=== PATIENT | female | born 1995 | race Asian ===

== ENCOUNTER 2019-12-21 14:57 | Inpatient (IN) | payer OTHER ==
[2019-12-21] MEDS ORDERED: Bupivacaine 0.25% HCL 30 ML VIAL ONE (15:45)
[2019-12-21] MEDS ORDERED: ePHEDrine/0.9% NaCl/PF SYRINGE 50 mg/10 ml ONE (15:45)
--- NOTE | 2019-12-21 17:08 | PDOC.LDHP ---
Labor and Delivery H&P Chief complaint: scheduled induction HPI: 24 yo G1 @ 37w1d by LMP c/w 11 week sono who presents for IOL due to GHTN Current gestational age (weeks): 37 Due date: 01/10/20 Dating criteria: last menstrual period Grav: 1 Para: 0 Current complications: gestational hypertension Abnormal US findings: No Past Medical History: Anemia Current medications: pre- vitamins, iron Previous surgical history: none Allergies/Adverse Reactions: Allergies Allergy/AdvReac Type Severity Reaction Status Date / Time No Known Allergies Allergy Verified 12/21/19 20:52 Social history: none - Physical Exam General: NAD Heart: RRR Lungs: nonlabored breathing Abdomen: gravid Extremeties: trace edema FHT: category 1 (130s, mod franco, +accels, no decels) [place] contractions every: q1-3 min - Vaginal Exam cm dilated: 1 (Cook balloon placed 80/80 cc) Effacement: 25% Station: -2 - OB Labs Blood type: O RH: positive Antibody Screen: negative HIV: negative RPR: negative HEPSAg: negative 1 hour GCT: positive 3 hour GTT: wnl GBS: negative Urine drug screen: negative Rubella: non-immune Additional Labs: NIPT, msAFP and carrier screening wnl - Assessment G1 @ 37w1d IUP IOL for GHTN now severe BPs- Severe GHTN vs preE with severe features Rubella NI Prior anemia - Plan Plan: admit to L&D, cervical ripening (s/p cytotec, balloon placed), informed consent obtained, anesthesia consult for pain management, other -: Given Hydralazine 5 mg IV; now given Labetalol 20 mg IV with resolution of severe BPs Start Mag and mag protocol for seizure PPX Start pitocin in combination with balloon
[2019-12-21] MEDS ORDERED: Misoprostol 200 MCG TAB PR PRN (20:01)
[2019-12-21] MEDS ORDERED: HYDROcodone/Acetaminophen 5/325 mg Tablet PO PRN (20:01)
[2019-12-21] MEDS ORDERED: NS / Oxytocin 40 units/1000ml 1,000 ML IV PRN (20:01)
[2019-12-21] MEDS ORDERED: Promethazine HCl 25 MG/ML VIAL IM PRN (20:01)
[2019-12-21] MEDS ORDERED: Ondansetron PF 4 MG/2 ML Vial IVP PRN (20:01)
[2019-12-21] MEDS ORDERED: Butorphanol Tartrate 1 MG/ML VIAL SLOW IVP PRN (20:01)
[2019-12-21] MEDS ORDERED: Lidocaine 1% (PF) 30 ML VIAL SC PRN (20:01)
[2019-12-21] MEDS ORDERED: hydrALAZINE 20 MG/ML VIAL SLOW IVP PRN (20:01)
[2019-12-21] MEDS ORDERED: Carboprost 250 MCG/ML AMP IM PRN (20:01)
[2019-12-21] MEDS ORDERED: Acetaminophen 500 MG TAB PO PRN (20:01)
[2019-12-21] MEDS ORDERED: Meperidine HCl/PF 25 MG/ML VIAL IM/IV PRN (20:01)
[2019-12-21] MEDS ORDERED: Diphenoxylate HCl/Atropine Tablet PO PRN (20:01)
[2019-12-21] MEDS ORDERED: Ibuprofen 800 MG TAB PO PRN (20:01)
[2019-12-21] MEDS: Lactated Ringer's 1,000 ML IV SCH (20:30)
[2019-12-21 20:38] LABS: Hemoglobin 12.5 g/dL (12.0-16.0); Mean Corpuscular Hemoglobin 25.5 pg (27.0-31.0); Mean Corpuscular Volume 75.1 fL (78.0-98.0); Mean Platelet Volume 9.3 fL (7.4-10.4); Platelet Count 220 thou/uL (130-400); RBC Distribution Width 14.8 % (11.5-14.5); Red Blood Cell (RBC) Count 4.89 mill/uL (4.20-5.40); White Blood Cell (WBC) Count 13.5 thou/uL (4.8-10.8)
[2019-12-21 20:51] VITALS: BMI 35.2
[2019-12-21 21:02] LABS: ALT (SGPT) 10 U/L (8-55); AST (SGOT) 12 U/L (5-34); Albumin 3.4 g/dL (3.5-5.0); Alkaline Phosphatase 101 U/L (40-110); Anion Gap 11 mmol/L (10-20); BUN (Urea Nitrogen) 8 mg/dL (7.0-18.7); Bilirubin, Total 0.2 mg/dL (0.2-1.2); Calc. Creatinine Clearance 212 mL/min (70-130); Calcium 9.3 mg/dL (7.8-10.44); Carbon Dioxide 21 mmol/L (22-29); Chloride 109 mmol/L (98-107); Estimated GFR-MDRD Greater than 90; Globulin 3.6 g/dL (2.4-3.5); Glucose 113 mg/dL (70-105); Potassium 3.7 mmol/L (3.5-5.1); Sodium 137 mmol/L (136-145)
[2019-12-21] MEDS: Misoprostol 100 MCG TAB VAG SCH (21:16)
[2019-12-21 21:17] LABS: Syphilis Antibody Nonreactive (Nonreactive); Syphilis Antibody Index 0.06 S/CO (<1.00 Non-Reactive)
[2019-12-21 22:26] LABS: HBSAg Index 0.14 S/CO (0-0.99); HIV (1/2) Antibody/Antigen Non-Reactive (NonReactive); HIV 1/2 INDEX 0.13 S/CO (<1.00); Hep B Surf Ag Non-Reactive S/CO (NonReactive)
[2019-12-21] MEDS ORDERED: diphenhydrAMINE 25 MG CAP PO SCH (22:30)
[2019-12-22] MEDS: Misoprostol 100 MCG TAB VAG SCH ×6 (00:41→17:59)
[2019-12-22] MEDS ORDERED: NS w/ Oxytocin 10 units 500 ML ONE (07:57)
[2019-12-22] MEDS ORDERED: Oxytocin 10 UNITS/ML VIAL ONE (07:57)
[2019-12-22] MEDS ORDERED: Magnesium Sulfate 20 GM/WATER 500 ML BAG IVPB SCH ×2 (08:00→13:30)
[2019-12-22] MEDS ORDERED: Calcium Gluc 4.6 MEQ/10 ML (100 MG/ML) SLOW IVP PRN (08:00)
[2019-12-22] MEDS: Lactated Ringer's 1,000 ML IV SCH ×2 (08:00→15:21)
[2019-12-22] MEDS ORDERED: Magnesium Sulfate 20 gm/500 ml 20 GM/500 ML BAG IVPB SCH (08:00)
[2019-12-22] MEDS ORDERED: Labetalol HCl 100 MG/20 ML VIAL SLOW IVP SCH ×2 (08:15→18:45)
[2019-12-22] MEDS: Magnesium Sulfate 20 GM in Dextrose 5% in Water 460 ML IV SCH ×2 (09:16→17:57)
[2019-12-22] MEDS ORDERED: Fentanyl 4 mcg/Bup 0.1% Cadd 100 ML ONE ×2 (10:28→19:00)
[2019-12-22] MEDS: Fentanyl 4 mcg/Bupivacaine 0.1% Cassette 100 ML EPIDURAL SCH ×2 (11:12→19:03)
[2019-12-22] MEDS ORDERED: Naloxone HCl 0.4 mg/ml Vial IVP PRN ×2 (11:16)
[2019-12-22] MEDS ORDERED: Lactated Ringer's 500 ML IV PRN (11:16)
[2019-12-22] MEDS ORDERED: diphenhydrAMINE 50 MG/ML VIAL IVP PRN (11:16)
[2019-12-22] MEDS ORDERED: Acetaminophen 325 MG TAB PO PRN (11:16)
[2019-12-22] MEDS ORDERED: ePHEDrine/0.9% NaCl/PF SYRINGE 50 mg/10 ml SLOW IVP PRN (11:16)
[2019-12-22] MEDS ORDERED: Ondansetron PF 4 MG/2 ML Vial IVP PRN (11:16)
[2019-12-22] MEDS ORDERED: Promethazine HCl 25 MG/ML VIAL IM PRN (11:16)
[2019-12-22] MEDS ORDERED: Communication Order-Pharmacy FS SCH (11:30)
[2019-12-22 12:30] LABS: Bacteria/HPF None Seen HPF (None Seen); Bilirubin Negative (Negative); Blood, Urine Negative (Negative); Clarity Clear (Clear); Glucose, Urine (Dipstick) Normal (Negative); Leukocyte Negative Leu/uL (Negative); Nitrite Negative (Negative); Protein, Urine (Dipstick) Negative (Neg-Trace); RBC/HPF 0-3 HPF (0-3); Squamous Epithelial 0-3 HPF (0-3); Urobilinogen Normal mg/dL (Less than 2); WBC/HPF 0-3 HPF (0-3)
--- NOTE | 2019-12-22 12:49 | PDOC.LDPN ---
Labor & Delivery Progress Note - Subjective Subjective: comfortable - Objective Abnormal vital signs: HTN, BPs now mild range General: NAD Uterine fundus: non tender Dilation: 5 Effacement: 75% Station: -2 FHT: category 1 (130s, mod franco, + accels, no decels ) [place] contractions every: irregular pattern now Other exam findings: UOP wnl; Mag level pending AROM: clear fluid - Assessment (1) 37 weeks gestation of Code(s): Z3A.37 - 37 WEEKS GESTATION OF Current Visit: Yes Status : Acute (2) Gestational hypertension Code(s): O13.9 - GESTATIONAL HTN W/O SIGNIFICANT PROTEINURIA, UNSP TRIMESTER Current Visit: Yes Status: Acute Plan: continue plan of care, pitocin for augmentation -: s/p balloon removed and AROM Start pitocin Continue mag and mag protocol for severe GHTN vs preE.
--- NOTE | 2019-12-22 16:41 | PDOC.LDPN ---
Labor & Delivery Progress Note - Subjective Subjective: comfortable - Objective Vital signs reviewed and normal: yes General: NAD Uterine fundus: non tender Dilation: 5 Effacement: 75% Station: -2 FHT: category 1 (120s, mod franco, +accels, no decels ) [place] contractions every: q3 min - Assessment (1) 37 weeks gestation of Code(s): Z3A.37 - 37 WEEKS GESTATION OF Current Visit: Yes Status : Acute (2) Gestational hypertension Code(s): O13.9 - GESTATIONAL HTN W/O SIGNIFICANT PROTEINURIA, UNSP TRIMESTER Current Visit: Yes Status: Acute -: IUPC in place, MVUS borderline adequate - inadequate Continue to increase pitocin to achieve adequate MVUs. Continue mag and mag protocol. BPs have been normal - mild range s/p epidural. mag and labetalol 20/40
[2019-12-22] MEDS ORDERED: NS w/ Oxytocin 10 units 500 ML IVPB SCH (18:45)
[2019-12-22] MEDS ORDERED: NS / Oxytocin 40 units/1000ml 1,000 ML ONE (22:21)
[2019-12-22] MEDS ORDERED: Lidocaine 1% (PF) 30 ML VIAL ONE (22:21)
[2019-12-22] MEDS ORDERED: Misoprostol 200 MCG TAB ONE (22:57)
[2019-12-22] MEDS ORDERED: Methylergonovine 0.2 MG/ML VIAL ONE (22:57)
[2019-12-22] MEDS ORDERED: traMADol HCl 50 MG TAB PO PRN (23:11)
[2019-12-22] MEDS ORDERED: Milk Of Magnesia 30 ML UDCUP PO PRN (23:11)
[2019-12-22] MEDS ORDERED: HYDROcodone/Acetaminophen 5/325 mg Tablet PO PRN (23:11)
[2019-12-22] MEDS ORDERED: Preparation H Ointment 28 GM TUBE PR PRN (23:11)
[2019-12-22] MEDS ORDERED: hydrALAZINE 20 MG/ML VIAL SLOW IVP PRN (23:11)
[2019-12-22] MEDS ORDERED: Benzocaine-Menthol 82.5 ML CAN TOP PRN (23:11)
[2019-12-22] MEDS ORDERED: Bisacodyl 10 MG SUPP PR PRN (23:11)
[2019-12-22] MEDS ORDERED: Zolpidem Tartrate 5 MG TAB PO PRN (23:11)
[2019-12-22] MEDS ORDERED: NS / Oxytocin 40 units/1000ml 1,000 ML IV SCH (23:15)
--- NOTE | 2019-12-22 23:16 | PDOC.OPDEL ---
OB Operative/Delivery Note Delivery Dr/Surgeon: Robina Pre-Delivery Diagnosis: elective induction Procedure/Post Delivery Dx: spontaneous vaginal delivery Anesthesia: epidural - Additional Findings/Plan Placenta delivered: spontaneous Repaired Obstetrical Laceration: vaginal Estimated blood loss: 300 Compilations/Other Findings: Precipitous , head delivering at time of my arrival. Remainder of baby delivered easily. Vigorous baby, crying at delivery. Placenta delivered spontaneously Alexa. Atony x 1 tx. with uterine massage, pit drip and Cytotec 800 mg MO with good response. Hymeneal lac repaired w/o difficulty with 2-0 chromic. Report given to Dr. Everett upon her arrival. To recover in LDR, on MgS04. Post delivery plan: recovery in LICU
[2019-12-23] MEDS: HYDROcodone/Acetaminophen 5/325 mg Tablet PO PRN ×4 (02:24→22:35)
[2019-12-23] MEDS: Magnesium Sulfate 20 GM in Dextrose 5% in Water 460 ML IV SCH ×2 (03:39→13:50)
[2019-12-23 05:45] LABS: #Eosinphils 0.1 thou/uL (0.0-0.7); #Lymphocytes 1.9 thou/uL (1.20-3.40); #Monocytes 0.7 thou/uL (0.11-0.59); #Neutrophils 12.4 thou/uL (1.40-6.50); %Basophils 0.2 % (0.0-1.0); %Eosinophils 0.4 % (0.0-10.0); %Lymphocytes 12.6 % (21.0-51.0); %Monocytes 4.5 % (0.0-10.0); %Neutrophils 82.3 % (42.0-75.0); Hemoglobin 11.4 g/dL (12.0-16.0); Mean Corpuscular HGB CONC 32.3 g/dL (32.0-36.0); Mean Corpuscular Hemoglobin 24.6 pg (27.0-31.0); Mean Corpuscular Volume 76.2 fL (78.0-98.0); Mean Platelet Volume 8.8 fL (7.4-10.4); Platelet Count 163 thou/uL (130-400); RBC Distribution Width 14.9 % (11.5-14.5); Red Blood Cell (RBC) Count 4.62 mill/uL (4.20-5.40); White Blood Cell (WBC) Count 15.1 thou/uL (4.8-10.8)
[2019-12-23 06:15] LABS: ALT (SGPT) 10 U/L (8-55); AST (SGOT) 18 U/L (5-34); Albumin 2.9 g/dL (3.5-5.0); Alkaline Phosphatase 82 U/L (40-110); Anion Gap 11 mmol/L (10-20); BUN (Urea Nitrogen) 5 mg/dL (7.0-18.7); Bilirubin, Total 0.5 mg/dL (0.2-1.2); Calc. Creatinine Clearance 240 mL/min (70-130); Calcium 7.1 mg/dL (7.8-10.44); Carbon Dioxide 22 mmol/L (22-29); Chloride 105 mmol/L (98-107); Estimated GFR-MDRD Greater than 90; Globulin 3.1 g/dL (2.4-3.5); Glucose 103 mg/dL (70-105); Potassium 3.7 mmol/L (3.5-5.1); Sodium 134 mmol/L (136-145)
--- NOTE | 2019-12-23 07:53 | PDOC.PP ---
Post Progress Note Post Day #: 1 Subjective: Denies preE sx. Minimal lochia. Good UOP. Breast feeding. PO intake tolerated: yes (sips of liquids) Flatus: yes Ambulation: no Weight Weight 212 lb - Physical Examination General: NAD Cardiovascular: RRR Respiratory: non-labored breathing Abdominal: no distention, appropriately TTP Fundus firm & at: below umbilicus Extremities: negative homans (B) Neurological: no gross focal deficits Psychiatric: A&Ox3, normal affect Result Diagrams: 12/23/19 05:38 12/23/19 05:38 Additional Labs: Post Labs Blood Type O POSITIVE 12/21/19 21:18 Hep Bs Antigen Non-Reactive S/CO (NonReactive) 12/21/19 20:28 (1) 37 weeks gestation of Code(s): Z3A.37 - 37 WEEKS GESTATION OF Status: Acute (2) Gestational hypertension Code(s): O13.9 - GESTATIONAL HTN W/O SIGNIFICANT PROTEINURIA, UNSP TRIMESTER Status: Acute - Assessment/Plan PPD1 GHTN vs preE: one severe range this morning, repeat mild range. Continue to monitor on L&D with mag and mag protocol. Mag level @ noon. Labs wnl. Good UOP. Continue PP care.
[2019-12-23] MEDS: Prenatal Vitamin 1 TAB PO SCH (10:21)
[2019-12-23] MEDS: Docusate Calcium (SURFAK) 240 MG CAP PO SCH ×2 (10:21→22:00)
[2019-12-23] MEDS: Labetalol 100 MG TAB PO SCH ×2 (10:29→22:08)
[2019-12-23] MEDS: Misoprostol 100 MCG TAB VAG SCH ×2 (16:52→16:53)
[2019-12-23] MEDS: Ferrous Sulfate 325 MG TAB PO SCH (16:53)
[2019-12-23] MEDS: Lactated Ringer's 1,000 ML IV SCH (16:53)
[2019-12-24] MEDS: Ferrous Sulfate 325 MG TAB PO SCH ×3 (01:59→18:02)
[2019-12-24] MEDS: Misoprostol 100 MCG TAB VAG SCH ×5 (01:59→18:02)
[2019-12-24] MEDS: Lactated Ringer's 1,000 ML IV SCH (02:00)
--- NOTE | 2019-12-24 08:24 | PDOC.PP ---
Post Progress Note Post Day #: 2 Subjective: No concerns. Pain moderate, improved with meds. Minimal lochia. Breast and bottle feeding. Denies preE sx. PO intake tolerated: yes Flatus: yes Ambulation: yes Vital Signs (12 hours) Temp Pulse Resp BP BP Pulse Ox 12/24/19 07:32 98.9 F 93 20 148/86 H 12/24/19 04:20 97.7 F 99 16 134/85 98 12/24/19 00:22 98.7 F 88 18 121/78 98 12/23/19 22:08 101 H 164/100 H Weight Weight 212 lb - Physical Examination General: NAD Cardiovascular: RRR Respiratory: non-labored breathing Abdominal: no distention, appropriately TTP Fundus firm & at: below umbilicus Extremities: negative homans (B) Neurological: no gross focal deficits Psychiatric: A&Ox3, normal affect Result Diagrams: 12/23/19 05:38 12/23/19 05:38 Additional Labs: Post Labs Blood Type O POSITIVE 12/21/19 21:18 Hep Bs Antigen Non-Reactive S/CO (NonReactive) 12/21/19 20:28 (1) 37 weeks gestation of Code(s): Z3A.37 - 37 WEEKS GESTATION OF Status: Acute (2) Gestational hypertension Code(s): O13.9 - GESTATIONAL HTN W/O SIGNIFICANT PROTEINURIA, UNSP TRIMESTER Status: Acute - Assessment/Plan PPD2 GHTN vs preE: s/p mag (d/c 12/23/19 @ 2300). BPs normal-mild range with Labetalol 200 mg PO BID. Continue PP care and monitor BPs at least 24 hrs off mag. Plan to d/c 1-2 days.
[2019-12-24] MEDS: Prenatal Vitamin 1 TAB PO SCH ×2 (09:15→09:16)
[2019-12-24] MEDS: Labetalol 100 MG TAB PO SCH ×2 (09:15→22:19)
[2019-12-24] MEDS: Docusate Calcium (SURFAK) 240 MG CAP PO SCH ×2 (09:16→22:20)
[2019-12-24] MEDS: HYDROcodone/Acetaminophen 5/325 mg Tablet PO PRN (09:17)
[2019-12-24] MEDS ORDERED: Lanolin Ointment 7 GM TUBE TOP PRN (10:10)
[2019-12-24] MEDS: Ibuprofen 800 MG TAB PO SCH ×2 (14:08→22:20)
[2019-12-25] MEDS: Ibuprofen 800 MG TAB PO SCH ×3 (06:22→22:23)
--- NOTE | 2019-12-25 07:24 | PDOC.PP ---
Post Progress Note Post Day #: 3 Subjective: Elevated range pressure this morning SBP 160/85 with repeat 190s. Denies SERRATO, vision changes, RUQ pain, leg swelling. No anxiety. PO intake tolerated: yes Flatus: yes Ambulation: yes Vital Signs (12 hours) Temp Pulse Resp BP BP BP Pulse Ox 12/25/19 06:20 97.7 F 88 20 168/85 H 99 12/25/19 00:20 98 F 88 20 140/75 98 12/24/19 22:19 97 132/85 12/24/19 20:30 98.5 F 100 24 H 139/89 98 Weight Weight 96.162 kg - Physical Examination Cardiovascular: RRR Respiratory: non-labored breathing Abdominal: appropriately TTP Neurological: no gross focal deficits Result Diagrams: 12/23/19 05:38 12/23/19 05:38 Additional Labs: Post Labs Blood Type O POSITIVE 12/21/19 21:18 Hep Bs Antigen Non-Reactive S/CO (NonReactive) 12/21/19 20:28 - Assessment/Plan s/p induction for gHTN, PPD3 -GHTN vs preE: s/p mag (d/c 12/23/19 @ 2300). Severe range BP 160/80 since being off of magnesium -Keep to monitor BP throughout day -Continue labetalol, may need dose increase if requiring multiple IV antihypertensive throughout day -If has another severe range BP will need to r/o preE-labs
[2019-12-25] MEDS: hydrALAZINE 20 MG/ML VIAL SLOW IVP PRN ×2 (07:48→20:45)
[2019-12-25] MEDS: Labetalol 100 MG TAB PO SCH ×2 (07:53→20:30)
[2019-12-25] MEDS: Ferrous Sulfate 325 MG TAB PO SCH ×2 (07:53→17:21)
[2019-12-25] MEDS: Prenatal Vitamin 1 TAB PO SCH (07:54)
[2019-12-25] MEDS: Docusate Calcium (SURFAK) 240 MG CAP PO SCH ×2 (07:54→20:30)
[2019-12-25] MEDS: Misoprostol 100 MCG TAB VAG SCH ×2 (10:19→14:24)
[2019-12-25] MEDS ORDERED: Labetalol 100 MG TAB PO SCH (21:15)
[2019-12-26] MEDS: Misoprostol 100 MCG TAB VAG SCH ×3 (04:03→09:33)
[2019-12-26] MEDS: Ibuprofen 800 MG TAB PO SCH ×3 (05:52→21:33)
--- NOTE | 2019-12-26 07:29 | PDOC.PP ---
Post Progress Note Post Day #: 3 Subjective: Pt reports doing well. Pt denies any chest pain, SOB. Pt denies any fever or chills. Pt denies any n/v/d/c. Pt reports normal lochia at this time. Pt reports passing gas. Tolerating PO. Pt denies any vision changes, lightheadness. Denies any swelling. PO intake tolerated: yes Flatus: yes Ambulation: yes Vital Signs (12 hours) Temp Pulse Resp BP BP BP BP 12/26/19 05:45 98.2 F 78 16 139/93 H 12/26/19 00:05 99.2 F 92 16 139/78 12/25/19 22:20 150/80 H 12/25/19 21:14 96 156/92 H 12/25/19 20:45 103 H 180/111 H 12/25/19 20:30 89 170/96 H 12/25/19 20:00 98.1 F 84 20 182/89 H Pulse Ox 12/26/19 05:45 98 12/26/19 00:05 98 12/25/19 22:20 12/25/19 21:14 12/25/19 20:45 12/25/19 20:30 12/25/19 20:00 99 Weight Weight 96.162 kg - Physical Examination General: NAD Cardiovascular: no m/r/g, RRR Respiratory: clear to auscultation bilaterally, non-labored breathing Abdominal: + bowel sounds, lochia, no distention, appropriately TTP Fundus firm & at: below umbilicus Extremities: negative homans (B) (No sign of edema or swelling at this time.) Neurological: no gross focal deficits Psychiatric: A&Ox3, normal affect Result Diagrams: 12/23/19 05:38 12/23/19 05:38 Additional Labs: Post Labs Blood Type O POSITIVE 12/21/19 21:18 Hep Bs Antigen Non-Reactive S/CO (NonReactive) 12/21/19 20:28 (1) Gestational hypertension Code(s): O13.9 - GESTATIONAL HTN W/O SIGNIFICANT PROTEINURIA, UNSP TRIMESTER Status: Acute - Assessment/Plan s/p induction for gHTN, PPD3 -GHTN vs preE: s/p mag (d/c 12/23/19 @ 2300). Pt again had severe range pressures last night to 180. Increased Labetalol dosing to 300 mg BID at this time. Will continue to trend BP throughout day. May consider dose of lasix to see if some extra diuresis helps with BP. -If has more severe range pressures will recheck Pre-E labs Addendum - Attending - Attending Attestation Date/Time: 12/26/19 [id number] I personally evaluated the patient and discussed the management with Dr. Parekh. I agree with the History, Examination, Assessment and Plan documented above.
[2019-12-26] MEDS ORDERED: Furosemide 20 MG/2 ML VIAL SLOW IVP SCH (07:45)
--- NOTE | 2019-12-26 07:48 | PDOC.EVN ---
Event Note - Event Note Event Note: Pt this morning had severe range pressure again to 170. -Labetolol increased last night to 300mg BID. -Will give 10mg dose IV lasix. -Pre-E labs ordered at this time. Will await results. -Continue to monitor. May increase labetolol or possibly readminister magnesium.
[2019-12-26] MEDS: Prenatal Vitamin 1 TAB PO SCH (08:10)
[2019-12-26] MEDS: Labetalol 100 MG TAB PO SCH ×2 (08:10→19:29)
[2019-12-26] MEDS: Docusate Calcium (SURFAK) 240 MG CAP PO SCH ×2 (08:10→21:32)
--- NOTE | 2019-12-26 08:39 | PDOC.EVN ---
Event Note - Event Note Event Note: OBGYN Team special education para professional [id number] S/P check out on patient's care BPs this am with severe range systolic BPs of 160-170 Prior team has ordered IV lasix 10mg this AM We are awaiting BP effect. Labs ordered this AM for PIH If persistent BP elevation, may need peripheral vasodilator agent and/or mag sulfate and transfer back to L&D for closer monitoring
[2019-12-26 08:58] LABS: #Basophils 0.1 thou/uL (0.0-0.2); #Eosinphils 0.6 thou/uL (0.0-0.7); #Lymphocytes 2.2 thou/uL (1.20-3.40); #Monocytes 0.3 thou/uL (0.11-0.59); #Neutrophils 9.1 thou/uL (1.40-6.50); %Basophils 0.6 % (0.0-1.0); %Eosinophils 5.1 % (0.0-10.0); %Lymphocytes 18.1 % (21.0-51.0); %Monocytes 2.3 % (0.0-10.0); %Neutrophils 73.9 % (42.0-75.0); Hemoglobin 11.3 g/dL (12.0-16.0); Mean Corpuscular HGB CONC 31.8 g/dL (32.0-36.0); Mean Corpuscular Hemoglobin 24.7 pg (27.0-31.0); Mean Corpuscular Volume 77.6 fL (78.0-98.0); Platelet Count 214 thou/uL (130-400); RBC Distribution Width 14.6 % (11.5-14.5); Red Blood Cell (RBC) Count 4.59 mill/uL (4.20-5.40); White Blood Cell (WBC) Count 12.3 thou/uL (4.8-10.8)
[2019-12-26 09:20] LABS: ALT (SGPT) 16 U/L (8-55); AST (SGOT) 18 U/L (5-34); Albumin 3.3 g/dL (3.5-5.0); Alkaline Phosphatase 79 U/L (40-110); Anion Gap 13 mmol/L (10-20); BUN (Urea Nitrogen) 9 mg/dL (7.0-18.7); Bilirubin, Total 0.4 mg/dL (0.2-1.2); Calc. Creatinine Clearance 205 mL/min (70-130); Calcium 9.6 mg/dL (7.8-10.44); Carbon Dioxide 25 mmol/L (22-29); Chloride 104 mmol/L (98-107); Estimated GFR-MDRD Greater than 90; Globulin 3.4 g/dL (2.4-3.5); Glucose 76 mg/dL (70-105); Potassium 3.6 mmol/L (3.5-5.1); Protein, Total 6.7 g/dL (6.0-8.3); Sodium 138 mmol/L (136-145)
[2019-12-26] MEDS: Ferrous Sulfate 325 MG TAB PO SCH ×2 (09:33→16:58)
[2019-12-26 09:51] LABS: Creatinine, Urine Less than 20.00 mg/dL (47-110); Protein, Urine Random Quant 12 mg/dL (1-14)
--- NOTE | 2019-12-26 11:47 | PDOC.EVN ---
Event Note - Event Note Event Note: Lab check from this AM: OK
--- NOTE | 2019-12-26 19:26 | PDOC.EVN ---
Event Note - Event Note Event Note: Called for BP 167/86 We will give the 300mg po labetolol now ASX
[2019-12-27] MEDS: Misoprostol 100 MCG TAB VAG SCH ×4 (05:01→15:59)
[2019-12-27] MEDS: Ibuprofen 800 MG TAB PO SCH ×2 (06:18→15:14)
[2019-12-27] MEDS: Ferrous Sulfate 325 MG TAB PO SCH (07:17)
[2019-12-27] MEDS: Prenatal Vitamin 1 TAB PO SCH (08:36)
[2019-12-27] MEDS: Labetalol 100 MG TAB PO SCH (08:36)
[2019-12-27] MEDS: Docusate Calcium (SURFAK) 240 MG CAP PO SCH (08:37)
[2019-12-27 12:59] VITALS: BP 133/78; TEMP 98.2
--- NOTE | 2019-12-27 13:24 | PDOC.PP ---
Post Progress Note Post Day #: 4 Subjective: Pt is doing well this morning. She has minimal lochia. Baby is breast feeding. She has no SERRATO, dizziness, visual changes, leg swelling or SOB. PO intake tolerated: yes Flatus: yes Ambulation: yes Vital Signs (12 hours) Temp Pulse Resp BP BP BP BP 12/27/19 12:30 98.2 F 97 16 133/78 12/27/19 08:36 88 157/71 H 12/27/19 08:31 98.6 F 87 16 157/71 H 12/27/19 04:20 97.7 F 88 20 158/92 H Pulse Ox 12/27/19 12:30 12/27/19 08:36 12/27/19 08:31 96 12/27/19 04:20 99 Weight Weight 212 lb - Physical Examination General: NAD Respiratory: non-labored breathing Abdominal: + bowel sounds, lochia, no distention, appropriately TTP Fundus firm & at: 2 cm below the umbilicus Extremities: negative homans (B) Skin: no rash Neurological: no gross focal deficits Psychiatric: A&Ox3, normal affect Result Diagrams: 12/26/19 08:42 12/26/19 08:42 Additional Labs: Post Labs Blood Type O POSITIVE 12/21/19 21:18 Hep Bs Antigen Non-Reactive S/CO (NonReactive) 12/21/19 20:28 (1) 37 weeks gestation of Code(s): Z3A.37 - 37 WEEKS GESTATION OF Status: Acute (2) Gestational hypertension Code(s): O13.9 - GESTATIONAL HTN W/O SIGNIFICANT PROTEINURIA, UNSP TRIMESTER Status: Acute - Assessment/Plan PT doing well PPD4. Pressures improved today. No symptoms of preE. Pt will be discharged home on labetalol 300 mg BID. She will follow up with our office later this week for BP check and continue to monitor twice daily at home. PT to call for any concerns or elevated reading.
[2019-12-27] MEDS ORDERED: Measles/Mumps/Rubella 10 MCG/0.5 ML VIAL SC ONE (14:45)
== END 2019-12-27 16:01 | disposition home or self-care (01) | DRG 807 ==
LOC: L&D 19:52 → 3SE 12-24 01:21 → EDSTATUS 01-06 14:56
PROVIDERS: ADMIT Obstetrics & Gynecology; ATTEND Obstetrics & Gynecology
PROC: 10E0XZZ Delivery of Products of Conception, External Approach (ICD-10-PCS; principal; 2019-12-22)
PROC: 10907ZC Drainage of Amniotic Fluid, Therapeutic from Products of Conception, Via Natural or Artificial Opening (ICD-10-PCS; 2019-12-22)
PROC: 0HQ9XZZ Repair Perineum Skin, External Approach (ICD-10-PCS; 2019-12-22)
PROC: 3E033VJ Introduction of Other Hormone into Peripheral Vein, Percutaneous Approach (ICD-10-PCS; 2019-12-22)
DX: O13.4 Gestational [pregnancy-induced] hypertension without significant proteinuria, complicating childbirth (principal); Z37.0 Single live birth; Z3A.37 37 weeks gestation of pregnancy; O70.0 First degree perineal laceration during delivery
CPT/HCPCS: 36415; 51702; 80053; 81001; 82570; 83735; 84156; 85025; 85027; 86780; 86850; 86900; 86901; 87340; 87389; 90707; J0360; J0595; J1940; J2001; J2210; J2590; J3475; J7070; Q0163; S0020

== ENCOUNTER 2021-09-18 10:46 | Outpatient (CLI) | payer OTHER | END 2021-09-18 10:47 | disposition home or self-care (01) | LOC: CTENTCT 10:46 | PROVIDERS: ATTEND Otolaryngology Plastic Surgery within the Head & Neck | DX: J34.2 Deviated nasal septum (principal) | CPT/HCPCS: 70486 ==

== ENCOUNTER 2021-09-26 07:31 | Day surgery (SDC) | payer OTHER ==
[2021-09-25 09:18] VITALS: BMI 34.7
[2021-09-26] MEDS ORDERED: AFRIN NASAL MIST 15 ML BOT ONE ×2 (08:01→08:22)
[2021-09-26 08:20] LABS: BHCG - Serum Negative (NEGATIVE); Pregs Control Background? CLEAR/WHITE (CLR/WHITE); Pregs Control Bar Appear? YES (CONTROL BAR)
[2021-09-26] MEDS ORDERED: Bacitracin Zinc Ointment 30 gm TUBE ONE (08:22)
[2021-09-26] MEDS ORDERED: Lidocaine 1% w/Epinephrine 1:100K 20 ML VIAL ONE (08:22)
[2021-09-26] MEDS ORDERED: Fentanyl 100 MCG/2 ML VIAL ONE (08:23)
[2021-09-26] MEDS ORDERED: Midazolam HCl 2 mg/2 ml Vial ONE (08:23)
[2021-09-26 08:56] LABS: Hemoglobin 13.6 g/dL (12.0-16.0)
[2021-09-26] MEDS ORDERED: Ondansetron PF 4 MG/2 ML Vial ONE (08:56)
[2021-09-26] MEDS ORDERED: Dexamethasone 20 MG/5 ML VIAL ONE (08:56)
[2021-09-26] MEDS ORDERED: Rocuronium Bromide 10 MG/ML (10ML VIAL) ONE (08:56)
[2021-09-26] MEDS ORDERED: PROPOFOL 200 MG/20 ML VIAL ONE (08:56)
[2021-09-26] MEDS ORDERED: Lidocaine 1% PF 5 ML VIAL ONE (08:56)
[2021-09-26] MEDS ORDERED: Glycopyrrolate 0.2 MG/ML 5 ML SYRINGE ONE (08:56)
[2021-09-26] MEDS ORDERED: Morphine 4 MG/ML VIAL ONE ×3 (10:18→11:32)
== END 2021-09-26 13:15 | disposition home or self-care (01) ==
LOC: SDC 07:31
PROVIDERS: ATTEND Otolaryngology Plastic Surgery within the Head & Neck
PROC: 09TV8ZZ Resection of Left Ethmoid Sinus, Via Natural or Artificial Opening Endoscopic (ICD-10-PCS; principal; 2021-09-26)
PROC: 09SM0ZZ Reposition Nasal Septum, Open Approach (ICD-10-PCS; principal; 2021-09-26)
PROC: 099Q8ZZ Drainage of Right Maxillary Sinus, Via Natural or Artificial Opening Endoscopic (ICD-10-PCS; principal; 2021-09-26)
PROC: 09TU8ZZ Resection of Right Ethmoid Sinus, Via Natural or Artificial Opening Endoscopic (ICD-10-PCS; principal; 2021-09-26)
PROC: 099R8ZZ Drainage of Left Maxillary Sinus, Via Natural or Artificial Opening Endoscopic (ICD-10-PCS; principal; 2021-09-26)
PROC: 09TL0ZZ Resection of Nasal Turbinate, Open Approach (ICD-10-PCS; principal; 2021-09-26)
DX: J32.8 Other chronic sinusitis (principal); J34.2 Deviated nasal septum; J34.3 Hypertrophy of nasal turbinates; J34.89 Other specified disorders of nose and nasal sinuses; Z79.899 Other long term (current) drug therapy
CPT/HCPCS: 84703; 85014; 85018; J1100; J2250; J2270; J2405; J2704; J3010